=== PATIENT | male | born 1995 | race Caucasian/White ===

== ENCOUNTER 2017-05-27 11:56 | Emergency (ER) | payer BC ==
[~2017-05-27] VITALS: Ht 182.9 cm; Wt 161.0 kg
[2017-05-27 12:57] VITALS: BP 118/88
== END 2017-05-27 15:12 | disposition home or self-care (01) ==
LOC: ER 11:57
DX: N45.1 Epididymitis (principal); N44.00 Torsion of testis, unspecified
CPT/HCPCS: 76870